=== PATIENT | female | born 1995 | race Caucasian/White ===

== ENCOUNTER 2016-05-23 04:29 | Emergency (ER) | payer SELFPAY ==
[~2016-05-23] VITALS: Ht 154.9 cm; Wt 68.2 kg
[2016-05-23 04:32] VITALS: BP 110/55; TEMP 98.3
[2016-05-23 05:10] VITALS: PULSE 92
== END 2016-05-23 05:10 | disposition home or self-care (01) ==
LOC: COL.ER 04:29
DX: F41.9 Anxiety disorder, unspecified (principal)
CPT/HCPCS: J2060